=== PATIENT | female | born 1975 | race Caucasian/White ===

== ENCOUNTER 2016-09-21 02:31 | Emergency (ER) | payer OTHER ==
--- NOTE | ~2016-09-21 | CT2 ---
[facility] A Service of [facility] RADIOLOGY TEXT RESULTS PATIENT: ARTHUR GUZMAN LOCATION: SED : 73 UNIT #: [id number] AGE: [address]: John Davey MD SEX: F ORDER DR: [id number] [place] [id number] E MR#: [id number] Acc #: [id number] NAME: ARTHUR GUZMAN : 1975 SEX: F STUDY DATE/TIME: 09/21/2016 4:21 UNIT: SED ROOM: STUDY DESCRIPTION: CT Abd and Pelv W Cont Attending Physician: John Davey M.D. Ordering Physician: John Davey M.D. Primary Care Physician: No Primary Care Physician MEDICAL IMAGING REPORT This report is preliminary unless electronic signature is present. EXAM CT abdomen and pelvis with contrast, 09/21/2016. HISTORY 41-year-old female in the ED complaining of a 2-day history of nausea, vomiting, diarrhea, and fever. TECHNIQUE CT examination of the abdomen and pelvis was performed with IV contrast. GI contrast was not administered, limiting evaluation of the GI tract. This CT exam was performed with one or more of the following radiation dose reduction techniques: automatic exposure control, adjustment of mA and/or kV according to patient size, and iterative reconstruction. FINDINGS ABDOMEN FINDINGS: The images show diffuse colon wall thickening and prominent colonic mucosal enhancement throughout the colon, finding suggesting diffuse colitis. Infectious colitis should be excluded. Small bowel is normal in caliber and appearance, the appendix is normal. No evidence of abscess, bowel perforation, or bowel obstruction. The liver, pancreas, spleen and kidneys are normal in size and appearance. No bile duct dilatation. Normal-caliber abdominal aorta. PELVIS FINDINGS: Hysterectomy. Small amount of free pelvic fluid. Bladder and the low rectum are negative. Limited images through the lower chest show no active disease. Postop changes Evelina fundoplication. IMPRESSION 1. CT findings compatible with moderate diffuse acute colitis from the [facility] A Service of [facility] RADIOLOGY TEXT RESULTS PATIENT: ARTHUR GUZMAN LOCATION: [facility] [place] : [birth year] UNIT #: [id number] AGE: [address]: John Davey MD SEX: F ORDER DR: cecum to the low rectosigmoid. Infectious colitis should be excluded. Small bowel appears normal. No evidence of bowel obstruction, abscess or bowel perforation. Normal appendix. 2. Hysterectomy. Evelina fundoplication. Dictated by... Sean Rodriguez M.D. THIS IS AN ELECTRONICALLY VERIFIED REPORT Sean Rodriguez M.D. at 09/21/2016 9:56 PM MIKAW/drake TD: 09/21/2016 12:25 JOB #: [id number] MEDICAL IMAGING REPORT Page 1 of 1
[~2016-09-21 02:31] MED LIST: ACZONE TP; AMOXICILLIN500 M1 PO; AZO STANDARD97.5 MG; AZO1 STRIP; CIPRO; IMITREX PO; MACROBID100 MG PO; MEDROL4 MG/DOSE-; MIRALAX17 GM PO; NORVASC10 MG PO; OXYCODONE-ACET1 EAC1 PO; PERCOCET 10/3251 TAB PO; SOLODYN55 MG PO; SUMATRIPTAN SU100 MG PO; TAZORAC TP; VESICARE PO; VISTARIL PO; VOLTAREN75 MG PO
[2016-09-21 03:24] LABS: URINE SOURCE CLEAN CATCH
[2016-09-21 03:27] LABS: URINE APPEARANCE CLEAR; URINE BLOOD 3+ (NEG); URINE COLOR DK YELLOW; URINE GLUCOSE NEG (NORM); URINE LEUKOCYTE ESTERASE 1+ (NEG); URINE NITRATE NEG (NEG); URINE PROTEIN 2+ (NEG); URINE SPECIFIC GRAVITY 1.025 (1.003-1.035); URINE UROBILINOGEN 0.2 MG/DL (NORM)
[2016-09-21 03:29] LABS: BASOPHIL# 0.1 X10e3 (0-0.3); BASOPHIL% 0.8 % (0-2.5); HEMATOCRIT 43.3 % (35.0-45.0); HEMOGLOBIN 14.7 gm/dL (12.0-16.0); LYMPHOCYTE# 0.7 X10e3 (1.0-3.5); LYMPHOCYTE% 8.1 % (17.0-45.0); MEAN CELL VOLUME 81.4 FL (83-96); MEAN CORPUSCULAR HEMOGLOBIN 27.6 PG (28-34); MEAN CORPUSCULAR HGB CONC 33.9 g/dL (30-36); MEAN PLATELET VOLUME 7.8 FL (6.5-11.5); MONOCYTE# 0.9 X10e3 (0-1.0); MONOCYTE% 10.7 % (3.0-12.0); NEUTROPHIL# 6.7 X10e3 (1.5-7.1); NEUTROPHIL% 80.4 % (40-75); PLATELET COUNT 247 X10e3 (140-420); RED BLOOD COUNT 5.32 X10e (3.90-5.30); WHITE BLOOD COUNT 8.3 X10e3 (4.0-10.5)
[2016-09-21 03:32] LABS: URINE KETONE 3+ (NEG)
[2016-09-21 03:35] LABS: DIFF IND NO; MICRO INDICATED? YES; URINE BILIRUBIN NEG (NEG)
[2016-09-21 03:38] LABS: CULTURE INDICATED? YES; URINE AMORPHOUS SEDIMENT AMORP URATES; URINE BACTERIA 2+ (NEG); URINE MUCUS PRESENT; URINE RBC 100-200 /[HPF] (0-2); URINE SQUAMOUS EPITHELIAL CELL FEW /[HPF]; URINE YEAST PRESENT
[2016-09-21 03:49] LABS: ALBUMIN SERUM 3.7 g/dL (3.5-5.0); BILIRUBIN, DIRECT 0.1 mg/dL (0.0-0.2); BILIRUBIN,INDIRECT 0.3 mg/dL (0.0-0.9); BILIRUBIN,TOTAL 0.4 mg/dL (0.2-2.0); BUN/CREATININE RATIO 14.28; CREATININE SERUM 0.7 mg/dL (0.6-1.4); GLOM FILT RATE Estimated 106.9 mL/min (>60); POTASSIUM 3.1 mmol/L (3.5-5.1); PROTEIN TOTAL SERUM 7.9 g/dL (6.0-8.3)
== END 2016-09-21 06:06 | disposition home or self-care (01) ==
LOC: SED 02:31
PROVIDERS: Emergency Medicine
DX: E87.6 Hypokalemia (principal); E86.0 Dehydration; K52.9 Noninfective gastroenteritis and colitis, unspecified; B37.9 Candidiasis, unspecified; J45.909 Unspecified asthma, uncomplicated; F17.200 Nicotine dependence, unspecified, uncomplicated; Z90.710 Acquired absence of both cervix and uterus; Z98.890 Other specified postprocedural states; Z88.8 Allergy status to other drugs, medicaments and biological substances
CPT/HCPCS: 36415; 74177; 80048; 80076; 81003; 83690; 85025; 87086; 96361; 96365; 96375; 99284; J0500; J1956; J2405; Q9967